=== PATIENT | female | born 1995 | race Caucasian/White ===

== ENCOUNTER → 2021-08-25 04:59 | Observation (INO) | END | disposition home or self-care (01) | LOC: 1NENULAB | PROVIDERS: ADMIT Student in an Organized Health Care Education/Training Program; ATTEND Student in an Organized Health Care Education/Training Program ==

== ENCOUNTER 2021-08-26 04:00 | Inpatient (IN) ==
[2021-08-26] MEDS ORDERED: miSOPROStoL 25 MCG TABLET PO PRN (04:15)
[2021-08-26] MEDS ORDERED: Metoclopramide 10 MG/2 ML VIAL IVP PRN (04:15)
[2021-08-26] MEDS ORDERED: Naloxone 0.4 MG/ML INJ IVP PRN (04:15)
[2021-08-26] MEDS ORDERED: *HR* Nalbuphine 10 MG/ML AMPUL IV PRN (04:15)
[2021-08-26] MEDS ORDERED: Oxytocin 30 UNIT/503 ML BAG IVC SCH (04:15)
[2021-08-26] MEDS ORDERED: Azithromycin 500 MG in 0.9 % Sodium Chloride 250 ML IVPB PRN (04:15)
[2021-08-26] MEDS ORDERED: Famotidine 20 MG/2 ML VIAL IVP PRN (04:15)
[2021-08-26] MEDS ORDERED: Ondansetron 4 MG/2 ML VIAL IVP PRN (04:15)
[2021-08-26 04:55] LABS: Basophils % 0.3 %; Eosinophils # 0.1 K/mcL (0.0-0.6); Hematocrit 32.5 % (35.3-44.9); Hemoglobin 10.4 g/dL (11.5-15.4); Immature Granulocytes % 1.2 % (0-4); Lymphocytes # 2.4 K/mcL (0.6-4.6); Lymphocytes % 26.4 %; Mean Corpuscular Hemoglobin 25.9 pg (28.0-33.3); Mean Platelet Volume 10.8 fL (9.4-12.4); Monocytes # 0.7 K/mcL (0.0-1.3); Monocytes % 7.9 %; Neutrophils # 5.8 K/mcL (1.6-8.9); Platelet Count 220 K/mcL (140-400); Red Blood Count 4.01 M/mcL (3.82-4.97); Red Cell Distribution Width 14.1 % (11.5-14.5); Segmented Neutrophils % 63.2 %; White Blood Count 9.2 K/mcL (4.3-11.1)
[2021-08-26] MEDS ORDERED: Penicillin G Potassium 5,000,000 UNIT in 0.9 % Sodium Chloride Mini Bag 100 ML IVPB ONE (04:58)
[2021-08-26] MEDS ORDERED: Penicillin G Potassium 2,500,000 UNIT/105 ML MLS IVPB SCH (05:00)
[2021-08-26] MEDS: Ringers Solution, Lactated 1,000 ML IVC SCH ×2 (05:11→08:45)
[2021-08-26 05:29] LABS: Influenza A PCR Negative (Negative); Influenza B PCR Negative (Negative); Resp. Syncytial Virus PCR Negative (Negative)
[2021-08-26 05:33] LABS: SARS-CoV-2 by PCR (In House) Negative (Negative)
[2021-08-26] MEDS ORDERED: EPHEDrine 50 MG/ML VIAL IVP PRN (07:28)
[2021-08-26] MEDS ORDERED: Epidural Premix (fent/bupiv) 110 ML EP SCH (07:30)
[2021-08-26 10:01] LABS: Amphetamine Screen,Urine Negative ng/mL (Cutoff=1000); Barbiturate Screen,Urine Negative ng/mL (Cutoff=200); Benzodiazepines Screen,Urine Negative ng/mL (Cutoff=200); Cannabinoid Screen,Urine Negative ng/mL (Cutoff = 50); Cocaine Screen,Urine Negative ng/mL (Cutoff= 300); Opiate Screen,Urine Negative ng/mL (Cutoff=300); Phencyclidine Screen,Urine Negative ng/mL (Cutoff=25)
[2021-08-26] MEDS ORDERED: Ringers Solution, Lactated 500 ML IVC ONE (16:18)
[2021-08-26] MEDS ORDERED: Ondansetron ODT 4 MG TAB.RAPDIS SL PRN (16:47)
[2021-08-26] MEDS ORDERED: Benzocaine/Menthol 56 GM AEROSOL SPRAY TP PRN (16:47)
[2021-08-26] MEDS ORDERED: Lanolin 7 G OINT...G. TP PRN (16:47)
[2021-08-26] MEDS: Acetaminophen 325 MG TABLET PO SCH ×2 (16:55→23:16)
[2021-08-26] MEDS ORDERED: 0.9 % Sodium Chloride 1,000 ML ONE (18:47)
[2021-08-26] MEDS: Ibuprofen 600 MG TABLET PO SCH (23:17)
[2021-08-27 04:35] LABS: Basophils % 0.2 %; Eosinophils # 0.1 K/mcL (0.0-0.6); Hematocrit 28.8 % (35.3-44.9); Hemoglobin 9.3 g/dL (11.5-15.4); Immature Granulocytes % 0.8 % (0-4); Lymphocytes % 24.9 %; Mean Corpuscular HGB Conc 32.3 g/dL (31.6-35.5); Mean Corpuscular Hemoglobin 26.6 pg (28.0-33.3); Mean Corpuscular Volume 82.5 fL (83.0-100.0); Mean Platelet Volume 10.9 fL (9.4-12.4); Monocytes # 0.8 K/mcL (0.0-1.3); Neutrophils # 7.9 K/mcL (1.6-8.9); Platelet Count 198 K/mcL (140-400); Red Blood Count 3.49 M/mcL (3.82-4.97); Red Cell Distribution Width 14.2 % (11.5-14.5); Segmented Neutrophils % 66.1 %; White Blood Count 11.9 K/mcL (4.3-11.1)
[2021-08-27 07:16] VITALS: BP 109/64; TEMP 97.9
[2021-08-27 07:19] VITALS: PULSE 82; O2SAT 98
[2021-08-27] MEDS: Acetaminophen 325 MG TABLET PO SCH (08:47)
[2021-08-27] MEDS: Ibuprofen 600 MG TABLET PO SCH (08:47)
[2021-08-27] MEDS ORDERED: Prenatal Vit/FA 1 EACH TABLET PO SCH (09:00)
== END 2021-08-27 14:57 | disposition home or self-care (01) | DRG 807 ==
LOC: 1NENULAB 04:08 → 1NENUOBS 18:27
PROVIDERS: ADMIT Obstetrics & Gynecology; ATTEND Obstetrics & Gynecology